=== PATIENT | female | born 1985 | race Caucasian/White ===

== ENCOUNTER 2017-04-08 05:36 | Inpatient (IN) | payer OTHER ==
[~2017-04-08] VITALS: Ht 160 cm; Wt 88.9 kg
[~2017-04-08 05:36] MED LIST: FeSO4 PO; LEVO125T2 PO; METF-487 PO; PNV1TABL57 PO; atenelol PO
[2017-04-08] MEDS ORDERED: Carboprost 250 mCg/mL Inj IM PRN ×2 (06:00→09:05)
[2017-04-08] MEDS ORDERED: Hemorrhage Kit, Post Partum XX ONE ×2 (06:00→09:05)
[2017-04-08] MEDS ORDERED: Oxytocin 10 Unit/mL Inj IM PRN ×2 (06:00→09:05)
[2017-04-08] MEDS ORDERED: Methylergonovine 0.2 mg/mL Inj IM PRN ×2 (06:00→09:05)
[2017-04-08] MEDS ORDERED: Lactated Ringer's 1,000 ML IV SCH ×2 (06:00→09:04)
[2017-04-08] MEDS ORDERED: Sodium Citrate-Citric Acid 15 mL Solution PO SCH (06:00)
[2017-04-08] MEDS ORDERED: Clindamycin Inj 900 MG in IV Premix 1 EACH IV SCH (06:00)
[2017-04-08 06:37] LABS: Mean Corpuscular Hemoglobin 31.4 pg (27.0-35.0); Mean Corpuscular Volume 93.9 fL (81-100)
--- NOTE | 2017-04-08 07:10 | PCM.HPANE ---
Patient Data Date of Service: Apr 08, 2017 Surgeon Admitting Provider:Renaldo Garcia MD Attending Provider:Juventino López MD Primary Care Physician:Renaldo Garcia MD Other Provider:Betty Martinez Anesthesia Reason for Visit repeat section repeat section Ht/WT & BMI Height (Centimeters): 160 Weight (Kilograms): 88.9 Body Mass Index 34.7 Allergies Coded Allergies: Penicillins (Verified Allergy, HIVES, 04/18/12) Past Anesthesia History Anesthesia History: Denies:: Abnormal Airway, Anesthesia Reactions, Difficult Intubation Diabetes History Hx Diabetes?: No Medications Hypertension Medication: Yes Home Meds Incl Beta Bassem: Yes Date Beta Bassem Taken: Apr 08, 2017 Time Beta Bassem Taken: 04:30 Reported Medications Levothyroxine-Expunged Drug, Do Not Renew! (Synthroid-Expunged Drug, Do Not Renew!)125 Mcg [id number] Mcg PO DAILY 04/14/12 [atenelol] No Conflict [id number] Mg PO BID #1 04/14/12 Metformin-Expunged Drug, Do Not Renew! 500 Mg Tab.er.05639 Mg PO BID 04/14/12 [FeSO4] No Conflict [id number] Mg PO DAILY 04/14/12 PNV CMB#95/FERROUS FUMARATE/FA-Expunged Drug, (-Expunged Drug, Do Not Renew!)1 Each Tablet1 Each PO DAILY 04/14/12 History History of ENT Problems?: No HEENT History: Denies:: Abnormal Airway Difficult Intubation Denture Type: None Teeth Condition: Within Normal Limits Hx of Heart Problems?: No Cardiovascular History: Positive for:: Hypertension Denies:: Irregular Heartbeat Hx of Respiratory Problem?: No Respiratory History: Denies:: Asthma Use of Inhalers / NEBS Hx Neurologic Problems?: No Neurological History: Denies:: CVA Seizures Hx of GI Problems?: No Gastrointestinal History: Positive for:: Gastroesphageal Reflux Hx of Problems?: No HX of Peritoneal Dialysis: No Female Hx: Positive for:: Currently (hx previous c/s) Hx Musculoskeletal Problems?: No Hx of Psycho/Social Problems?: No Hx Surgeries?: Yes (c/s) Hx Any Other Health Problems?: No Other History: Positive for:: Hospitalization Hx Diabetes: No (metformin for PCOS) Hx Alcohol Use: NoHx Substance Use: NoHave You Smoked inLast 12 mo: No Stop/Bang Treated for Sleep Apnea?: No Do You Have a CPAP Machine?: No JESUS Risk Assessment: Low Risk, <3 Yes Risk Assessment Category Category 1A: Patient has history of documented sleep apnea, and HAS NOT received any narcotic, sedative or anesthesia administration during this stay. Category 1B: Patient has history of documented sleep apnea, and HAS received any narcotic , sedative or anesthesia administration during this stay Category 2: Patient has SUSPECTED Obstructive Sleep Apnea, and HAS received any narcotic , sedative or anesthesia administration during this stay. Category 3: Patient has SUSPECTED Obstructive Sleep Apnea and HAS NOT received narcotic, sedative or anesthesia administration during this stay. Category 4: Outpatient in Procedural Areas with known sleep apnea or who screen positive for High Risk via the STOP/BANG questionnaire. Exam Exam General Appearance: Alert, Oriented X3, Cooperative HEENT/AIRWAY: MP 2, Neck Movement (Full), Mouth Opening (Wide) Lungs: Clear to Auscultation, Normal Air Movement Heart: Regular Rate/Rhythm, Normal S1, Normal S2 Meds/Labs/Diagnostics Labs Test 04/08/17 05:50 White Blood Count 7.5th/mm3 (3.8-10.1) Red Blood Count 3.76mil/mm3 (3.90-5.20) Hemoglobin 11.8g/dL (12.0-15.6) Hematocrit 35.3% (35.0-46.0) Mean Corpuscular Volume 93.9fL (81-100) Mean Corpuscular Hemoglobin 31.4pg (27.0-35.0) Mean Corpuscular Hemoglobin Concent 33.4% (32.0-37.0) Red Cell Distribution Width 14.4% (12.3-15.4) Platelet Count 147bil/L (150-400) Plan Impression Patient chart reviewed, patient interviewed and anesthestic plan with risks, benefits, and alternatives discussed, and informed consent obtained. NPO per Anesth. Guidelines: Yes ASA Physical Status: ASA2 Mod Systemic Disease Anesthetic Plan: SAB Bene/Risks/Altern/Consents: Yes HP Complete Prior to Induction: Yes Chu Doe MD Apr 08, 2017 07:10
[2017-04-08] MEDS ORDERED: Atropine 0.4 mg/mL Inj IV PRN (07:15)
[2017-04-08] MEDS ORDERED: EPHEDrine Sulfate 50 mg/mL Inj IVPUSH PRN (07:15)
[2017-04-08] MEDS ORDERED: fentaNYL-PF 50 mCg/mL 2 mL Inj IVPUSH PRN (07:15)
[2017-04-08] MEDS ORDERED: fentaNYL-PF 50 mCg/mL 2 mL Inj ONE (09:00)
[2017-04-08] MEDS ORDERED: Oxytocin 10 Unit/mL Inj ONE (09:00)
[2017-04-08] MEDS ORDERED: Bupivacaine-MPF 0.75% 30 mL Inj ONE (09:00)
[2017-04-08] MEDS ORDERED: Ondansetron 2 mg/mL 2 mL Inj ONE (09:00)
[2017-04-08] MEDS ORDERED: Morphine PF 1 mg/mL 10 mL Inj ONE (09:00)
[2017-04-08] MEDS ORDERED: Sodium Chloride LOK Flush 10 mL Syringe IVFLUSH PRN (09:05)
[2017-04-08] MEDS ORDERED: LANOlin HPA 7 Gm Ointment TOPICAL PRN (09:05)
[2017-04-08] MEDS ORDERED: Oxytocin 30 Units/500 mL LR 30 UNITS in IV Premix 1 EACH IV PRN (09:05)
[2017-04-08] MEDS ORDERED: hydrOXYzine Pamoate 25 mg Capsule PO PRN (09:05)
[2017-04-08] MEDS ORDERED: HYDROcodone-APAP 5-325 mg Tablet PO PRN (09:05)
[2017-04-08] MEDS ORDERED: diphenhydrAMINE 50 mg Capsule PO PRN (09:05)
--- NOTE | 2017-04-08 09:51 | PCM.ANEP1 ---
Post Anesthesia PACU Phase 1 Assessment Date of Service: Apr 08, 2017 Vital Signs PACU T 36.4, 117/61, 20, 62, 97% RA Anesthetic Administered: SAB Level of Alertness: Awake, talking GUERRERO's with Equal Strength: No Pain: No Nausea or Vomiting: No CV Function & Hydration Stable: Yes Airway Device: Oxygen Delivery: Room Air Lungs: Normal Air Movement Dermatome Level: T10 (Umbilicus) PACU Phase 2 Assessment Complications: No Follow up Care: No Patient Instructions Provided: N/A Chu Doe MD Apr 08, 2017 09:51
[2017-04-08] MEDS: Acetaminophen IV 1,000 MG in IV Premix 1 EACH IV PRN ×2 (09:55→22:45)
[2017-04-08] MEDS: Ondansetron 2 mg/mL 2 mL Inj IVPUSH PRN ×2 (11:32→15:22)
[2017-04-08] MEDS ORDERED: Oxytocin 30 Units/500 mL LR Premix IV ONE (13:45)
[2017-04-08] MEDS: Multivit-Miner-Folic Acid-Iron Tablet PO SCH (22:46)
--- NOTE | 2017-04-09 08:25 | OP ---
[address] [address] OPERATIVE REPORT PATIENT: AWILDA CARDOZA : 1985 MR#: [id number] ADMIT: 04/08/2017 JOB ID: [id number] DATE OF SURGERY: 04/09/2017 PREOPERATIVE DIAGNOSIS(ES): 1. 3, para 1 female at 39 weeks estimated gestational age. 2. Prior x1. 3. Chronic HTN POSTOPERATIVE DIAGNOSIS(ES): 1. 3, para 2 female, now status post repeat section. 2. Moderate to severe scar tissue especially involving the right tube with a complete adherence of the right tube to the right side of the patient's uterus. 3. Nuchal cord x1 with the infant. 4. Chronic HTN SURGERY: Repeat low transverse section via Pfannenstiel incision. SURGEON: Juventino López MD. COACH BUILDER: Renaldo Garcia MD. ANESTHESIA: Spinal. INDICATIONS: The patient had a prior with her first delivery and desired a repeat section. FINDINGS: 1. Vigorous infant male, status post nuchal cord x1 reduced easily. 2. Moderate to severe scarring involving the right tube and most of the lower uterine segment. 3. Complete dysfunction of right tube due to adherence to the uterus of this tube in its entirety. 4. Otherwise normal ovaries. COMPLICATIONS: None. ESTIMATED BLOOD LOSS: 800 cc. INTRAVENOUS FLUIDS: 1500 cc lactated Ringer's. URINE OUT: 50-100 cc clear urine at the end of the procedure. PATHOLOGY: None. DETAILS: The patient was taken back to the OR, where spinal anesthesia was performed. She was given 900 mg IV of clindamycin prior to the procedure. The patient was prepped and draped in the usual fashion. A procedural time-out was done. At this point, the prior incision site was used as a starting point for the current surgery. The knife and the Bovie were used to extend this incision down to the underlying layer of fascia. The underlying layer of fascia was incised in the midline, and this incision was carried laterally in each direction using the Earl scissors. The fascia was then dissected off the underlying layer of muscle using the Earl scissors and the Bovie. Once this had been done, a minor defect superiorly on the rectus abdominis muscles was noted, and this was the entry point into the abdomen and pelvis. Unfortunately, adhesions were palpated through this entry point. For this reason, I had to carefully dissect the rectus abdominis muscle inferiorly and superiorly being careful to avoid the underlying structures. I also made lateral incisions in the peritoneal layer to try and get more space for visualization of the underlying scar tissue. Upon visualization of the underlying uterus and scar tissue, it was noted that the combination of the peritoneal layer and the omentum was stuck significantly across the left side of the lower uterine segment and rotated the uterus to the right. Unfortunately, there was also a significant amount of adhesions involving the right tube that pasted the right tube directly inferiorly from the right side of the uterus and also involved the adhesion of the fimbria to an area close to where the uterine incision needed to be made. At this point, I dissected away some of these adhesions using clamping and Bovie technique. All bleeders were stopped using the Bovie. I created enough of a window on the uterus to enter and be reasonably sure that the bladder was out of the way. I did this using the 15 blade but the final entry into the uterus was with the back of the knife. The amniotic sac ballooned up, and this was entered using an Allis clamp. Clear fluid resulted. Due to the adhesions, there was a limited area for me to work with the bandage scissors but I did extend the uterine incision laterally and superiorly using the bandage scissors and my fingers. Once an adequate space was created, the delivery of the infant's head was attempted. This took closer to 40 seconds due to the fact that I did not have a large space to deliver through given all the adhesions. The head did finally deliver, followed by the reduction of the nuchal cord. I then delivered the shoulders easily, and the infant was brought to the surgical field with good tone and an attempted crying. We let 20-30 seconds go by of delayed cord clamping while stimulating and drying the infant. The cord was then clamped and cut, and the infant was handed off to awaiting nurses. The infant still had not cried very hard and was attended to at the warmer by the nurses. The cord blood was sent for analysis. Next, the placenta was removed manually and all membranes were swept from inside the uterus using sponges, and the last of the membranes required the use of a ring forceps inferiorly toward the opening to the cervix. Once the membranes had been cleared, the internal os of the cervix was dilated artificially using the ring forceps. This instrument was then wasted from the surgical field. The uterine incision was marked using Allis clamps, and there was an area of scarring adhesions on the left side of the uterus. It was evaluated to see if they could be reduced in an effort to make future pregnancies and deliveries easier. Unfortunately, this could not be done without a significant amount of bleeding, it was determined. For this reason, I went ahead and closed the uterine incision in the usual fashion using 1-0 chromic suture in a running, locked manner. This brought the uterine incision together, and I was able to successfully avoid the bladder inferiorly and the right tube adhesions superiorly as I approached the right side of the incision. There was not enough space for an imbricating layer but I did throw several sutures in the midline using 1-0 chromic suture in a running fashion. Additional [id number] sutures had to be made at an area where adhesions had pulled free superior to the wound. This required most of our attention and also some additional 2-0 chromic suture tied in a [id number] fashion. Finally, hemostasis was achieved. Once this had been done, attention was paid to the rest of the wound, where the Bovie was used to stop any additional bleeders. The uterus, which had been exteriorized after the removal of the placenta, was returned back into the pelvis following irrigation. Once in the pelvis, the uterus was examined for further bleeding and two additional bleeders were found and ligated using 2-0 chromic suture. Once I was satisfied that hemostasis had been achieved, Interceed was placed across the wound to prevent future scarring as best we could. Once this had been done, 2-0 chromic suture was used in a running fashion to close the muscle. Examination of the muscle was performed looking for bleeders and none were found. The fascia was closed using 0 Vicryl in a running fashion. A 2-0 plain gut suture was used to close the subcutaneous tissue after irrigation had been performed. This was done in a running fashion. Finally, the wound was closed using amaury. A standard dressing was applied. Counts were correct x3. The patient was in excellent condition following the surgery, and no other complications were encountered. I discussed with the patient the fact that her right tube was likely useless in getting with this and would be useless in the future to her since the fimbria were pinned to the anterior uterine wall and there was no way that they could be in proximity to the right ovary. I also described the degree of scar tissue, and the patient said that she likely would not be getting again. I discussed with her the fact that we could likely still deliver a baby through any additional scar tissue that would be developing after the surgery but that it may be better indeed if she stopped after two C-sections. They will talk to me in the future as they go to get again if that is their choice, and she expressed understanding of the degree of scar tissue which was present for this surgery. CHERELLE
--- NOTE | 2017-04-09 09:46 | PCM.PNOBPP ---
Subjective Date of Service Apr 09, 2017 Post : Repeat Ceserean Delivery Lochia: Normal Pain Management: PO pain meds Gastrointestinal: Good Appetite, No N/V Postop Activity: Ambulating Independently Labs Laboratory Tests 04/09/17 06:43: White Blood Count 9.4, Red Blood Count 3.32, Hemoglobin 10.3, Hematocrit 31.2, Mean Corpuscular Volume 94.0, Mean Corpuscular Hemoglobin 31.0, Mean Corpuscular Hemoglobin Concent 33.0, Red Cell Distribution Width 14.0, Platelet Count 135 Exam Vital Signs Vital Signs: VS reviewed, stable Exam : Voiding without difficulty Extremities: No cords Lungs: Clear to Auscultation General: Alert, Oriented X3 Surgical Wound : Incision General Appearence: Judit Dressing & Drainage Status: Dry & Intact OB Post Assessment/Plan Problems: (1) Status post repeat low transverse section Status: Acute ICD Code: Z98.891 Pain Evaluation: Adequate Pain Control Post plan: Continue routine post care, Discharge home tomorrow Juventino López MD Apr 09, 2017 09:46
[2017-04-09] MEDS: Multivit-Miner-Folic Acid-Iron Tablet PO SCH (10:15)
[2017-04-09] MEDS: Ascorbic Acid 500 mg Tablet PO SCH (10:16)
[2017-04-09] MEDS: oxyCODONE-Acetamin 5-325 mg Tablet PO PRN ×2 (12:20→18:16)
[2017-04-10] MEDS: Ascorbic Acid 500 mg Tablet PO SCH (07:22)
--- NOTE | 2017-04-10 08:45 | PCM.DC.OB ---
Obstetrical Discharge Summary Date of Service Apr 10, 2017 Date of hospital admission Apr 08, 2017 at 05:36 Date of Discharge: Apr 10, 2017 Providers Admitting Physician: Renaldo Garcia MD Primary Care Physician: Renaldo Garcia MD Attending Physician: Juventino López MD Problems: (1) Status post repeat low transverse section Status: Acute ICD Code: Z98.891 Consultations None Invasive procedures Repeat LTCS Date of Procedure: Apr 08, 2017 Hospital Course: Presented for repeat . This went without complication. She recovered in excellent fashion. ([FeSO4]) 325 MG PO DAILY (Reported) ([atenelol]) 100 MG PO BID (Reported) Levothyroxine-Expunged Drug, Do Not Renew! (Synthroid-Expunged Drug, Do Not Renew!) 125 Mcg Tablet 125 MCG PO DAILY (Reported) Metformin-Expunged Drug, Do Not Renew! (Metformin-Expunged Drug, Do Not Renew!) 500 Mg Tab.er.24 500 MG PO BID (Reported) PNV CMB#95/FERROUS FUMARATE/FA-Expunged Drug, (-Expunged Drug, Do Not Renew!) 1 Each Tablet 1 EACH PO DAILY (Reported) Follow-up plan See Dr. Garcia for wound checks and at 8 weeks pos . Discharge Diet: No restrictions Discharge Activity-General: Pelvic Rest for 6 weeks, Try not to overdue, Be up and about, Balance rest and activity, Activity as pain allows, Activity as energy allows, No lifting >15 pounds for 2 weeks copies to: Renaldo Garcia MD, David B MD Apr 10, 2017 08:45
--- NOTE | 2017-04-10 08:47 | PCM.DIOB ---
Obstetrical Disch Instruction Date of Service: Apr 10, 2017 Dates of Hospitalization Date of Hospital Admission Apr 08, 2017 at 05:36 Providers Admitting Physician: Renaldo Garcia MD Primary Care Physician: Renaldo Garcia MD Attending Physician: Juventino López MD Discharge Diagnosis Problems: (1) Status post repeat low transverse section Status: Acute ICD Code: Z98.891 Diet Discharge Diet: No restrictions Activity Discharge Activity-General: Pelvic Rest for 6 weeks, Try not to overdue, Be up and about, Balance rest and activity, Activity as pain allows, Activity as energy allows, No lifting >15 pounds for 2 weeks Dressing and Incisional Care Dressing Care: Allow Steri Stripes to fall off Hygiene: May shower, DO NOT soak incision under water, NO bathtub, hot tub or whirlpool Additional Instructions Discharge Instructions Resume labetolol at home Follow Up Plan Follow-up Provider (F9): Renaldo Garcia MD Follow-up appointment: Weeks (8) Call your provider for: Fever or Chills, Shortness of breath, Heavy vaginal bleeding, Heavy bleeding, Epigastric pain, Excessive constipation, Red painful breasts Juventino López MD Apr 10, 2017 08:47
[2017-04-10] MEDS ORDERED: DOCU-41 PO (08:51)
[2017-04-10] MEDS ORDERED: OXYC1TAB24 PO (08:51)
[2017-04-10] MEDS ORDERED: IBUP800T28 PO (08:51)
[2017-04-10 10:58] VITALS: BP 177/65; PULSE 80; RESP 16
== END 2017-04-10 10:30 | disposition home or self-care (01) | DRG 766 ==
LOC: FBC 05:36 → EDSTATUS 07:15
PROVIDERS: ADMIT Family Medicine; ATTEND Family Medicine
PROC: 10D00Z1 Extraction of Products of Conception, Low, Open Approach (ICD-10-PCS; principal; 2017-04-08 07:15)
DX: O34.211 Maternal care for low transverse scar from previous cesarean delivery (principal); Z3A.39 39 weeks gestation of pregnancy; Z37.0 Single live birth; O69.81X0 Labor and delivery complicated by cord around neck, without compression, not applicable or unspecified; O16.4 Unspecified maternal hypertension, complicating childbirth; O99.284 Endocrine, nutritional and metabolic diseases complicating childbirth; E03.9 Hypothyroidism, unspecified